=== PATIENT | female | born 1985 | race Caucasian/White ===

== ENCOUNTER 2017-03-14 16:00 | Emergency (ER) | payer SELFPAY ==
[~2017-03-14] VITALS: Ht 157.5 cm; Wt 49.9 kg
--- NOTE | 2017-03-14 16:08 | PHYS DOC ---
General Chief Complaint: abdomen flank pain Stated Complaint: ABD/BACK PAIN Time Seen by MD: 16:07 Source: patient Exam Limitations: no limitations Problems: History of Present Illness Initial Comments Patient is a 31-year-old female who comes to the emergency department complaining of lower abdominal and left flank pain. Patient states that for the past 24 hours she's had suprapubic and left flank pain which has been worsening. She states that her symptoms are worse with urination, she denies fever chills sweats or myalgias no nausea vomiting and no bowel changes. She denies any injury denies any midline or bony back pain, she denies any leg weakness, incontinence, or saddle anesthesia. She states she gets UTIs occasionally and feels she may have one. She is repeatedly requesting pain medications and writhing as if in discomfort. She denies any substance abuse other than tobacco and denies any pre-arrival treatment. She denies any trauma and is agreeable that imaging is unnecessary however states there is a possibility she could be . Her ED vital signs are stable and she states she does not have health insurance and would like to have limited testing and workup to save her from any unnecessary expenses. Timing/Duration: 24 hours Severity: moderate Modifying Factors: worse with movement, improves with other Associated Symptoms: other Allergies: Coded Allergies: No Known Drug Allergies (Unverified , 03/14/17) Past Medical History Medical History: no pertinent history Surgical History: noncontributory Social History Smoker: cigarettes Alcohol: none Drugs: none Review of Systems Constitutional: denies chills, denies diaphoresis, denies fever, denies malaise Respiratory: denies cough, denies shortness of breath Cardiovascular: denies chest pain, denies palpitations, denies syncope Gastrointestinal: abdominal pain, denies diarrhea, denies nausea, denies vomiting Genitourinary: denies discharge, denies dysuria, frequency, denies hematuria Musculoskeletal: see HPI, denies joint swelling, denies muscle pain, denies muscle stiffness, denies neck pain Psychiatric/Neurological: denies headache, denies numbness, denies paresthesia , denies pre-existing deficit Physical Exam General Appearance: moderate distress, thin Eyes: bilateral eye normal inspection, bilateral eye PERRL, bilateral eye EOMI Ear, Nose, Throat: hearing grossly normal, normal ENT inspection, normal pharynx Neck: non-tender, supple Respiratory: normal breath sounds, no respiratory distress Cardiovascular: normal peripheral pulses, regular rate, rhythm Gastrointestinal: other (suprapubic tenderness, negative McBurney negative Colin bowel sounds are normal there is no rebound guarding or palpable masses) Back: no vertebral tenderness, CVA tenderness (L) Extremities: normal range of motion, non-tender, normal inspection 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 I discussed further workup with the patient, she is requesting symptomatic treatment and agrees to follow-up as necessary. Morphine IM given in the emergency department to get ahead of her pain, a short course of [place] as well as Bactrim DS and Pyridium prescribed. Signs and symptoms to monitor and indications to return are discussed at length patient expressed agreement and understanding with the treatment plan. Departure Time of Disposition: 16:35 Disposition: 01 HOME, SELF-CARE Diagnosis: pyelonephritis, Condition: GOOD Patient Instructions: Pyelonephritis, Adult, [id number] Additional Instructions: No driving or operating machinery while under the influence of sedative medications. Aggressive hydration with Gatorade or water. Heating pad to low back 15 minutes 4-6 times daily. Prescription: Bactrim DS, Pyridium, [place] 5 mg quantity 5 Take medications with food to avoid adverse GI affects. Follow-up with your doctor in 3-5 days for recheck and urine culture results. Return to ED with new or changing symptoms. JOSIE STRICKLAND DO Mar 14, 2017 16:07
[2017-03-14] MEDS ORDERED: HYDR-971 PO ×2 (16:34→16:58)
[2017-03-14] MEDS ORDERED: MORPHINE SULFATE 10 MG/ML SYRINGE. IM ONE (16:45)
[2017-03-14] MEDS ORDERED: SULF1TAB24 PO (16:58)
[2017-03-14] MEDS ORDERED: PHEN100T82 PO (16:58)
[2017-03-14 17:00] LABS: BILIRUBIN,URINE NEG (NEG); CLARITY,URINE HAZY; COLOR,URINE YELLOW
[2017-03-14 17:01] LABS: NITRITE,URINE NEG (NEG); UROBILINOGEN,URINE 2 mg/dL (0.2 mg/dL)
[2017-03-14 17:02] LABS: GLUCOSE,URINE NEG (NEG)
[2017-03-14 17:20] VITALS: BP 111/55
== END 2017-03-14 17:20 | disposition home or self-care (01) ==
LOC: ER 16:00
DX: N12 Tubulo-interstitial nephritis, not specified as acute or chronic (principal); F17.210 Nicotine dependence, cigarettes, uncomplicated
CPT/HCPCS: 81003; 81025; 87086; 96372; 99283; J2270